=== PATIENT | female | born 1960 | race Hispanic/Latino ===

== ENCOUNTER 2018-11-21 02:42 | Observation (INO) | payer BC ==
[2018-11-21] VITALS (19 sets, daily range): BP systolic 138–185; BP diastolic 60–90
[2018-11-21 03:14] LABS: APPEARANCE,URINE Clear (CLEAR); BILIRUBIN,URINE Negative (NEGATIVE); COLOR,URINE Yellow (YELLOW); GLUCOSE, URINE (UA) Negative (NEGATIVE); KETONES,URINE Negative (NEGATIVE); LEUKOCYTE ESTERASE ,URINE Negative (NEGATIVE); NITRATE,URINE Negative (NEGATIVE); OCCULT BLOOD,URINE Negative (NEGATIVE); PROTEIN,URINE POS 1+ (NEGATIVE)
[2018-11-21 03:15] LABS: BASOPHILS % (AUTO) 0.5 % (0.0-5.0); HEMATOCRIT 43.1 % (36-48); MEAN CORPUSCULAR HEMOGLOBIN 29.2 pg (27.0-33.0); MEAN CORPUSCULAR HGB CONC 32.8 g/dL (32.0-36.0); MEAN CORPUSCULAR VOLUME 89.3 fL (79-99); MONOCYTES % (AUTO) 9.6 % (3.0-13.0); NEUTROPHILS % (AUTO) 65.9 % (40.0-77.0); NUCLEATED RED BLOOD CELLS 0.1 % (0.0-0.19); PLATELET COUNT (AUTO) 216 K/uL (130-400); RED BLOOD CELL COUNT(AUTO) 4.83 MIL/uL (4.00-5.50); RED CELL DISTRIBUTION WIDTH 14.6 % (11.0-15.5); WHITE BLOOD COUNT (AUTO) 8.6 K/uL (4.8-10.8)
[2018-11-21 03:18] LABS: CREATININE 0.9 mg/dL (0.5-1.5); POTASSIUM 3.4 mmol/L (3.5-5.1)
[2018-11-21] MEDS ORDERED: ONDANSETRON HCL 4 MG/2 ML VIAL ONE (03:18)
[2018-11-21] MEDS ORDERED: MORPHINE SULFATE 4 MG/1ML SYG ONE ×2 (03:19→04:39)
[2018-11-21 03:22] LABS: AMPHET/METH SCREEN,URINE NEGATIVE (NEGATIVE); BARBITURATE SCREEN, URINE NEGATIVE (NEGATIVE); BENZODIAZEPINES SCREEN,URINE NEGATIVE (NEGATIVE); CANNABINOID SCREEN,URINE NEGATIVE (NEGATIVE); COCAINE SCREEN,URINE NEGATIVE (NEGATIVE); OPIATE SCREEN,URINE NEGATIVE (NEGATIVE); PHENCYCLIDINE SCREEN,URINE NEGATIVE (NEGATIVE)
[2018-11-21 03:23] LABS: ALBUMIN 3.4 g/dL (3.5-5.0); BILIRUBIN,TOTAL 0.3 mg/dL (0.2-1.0)
[2018-11-21 03:28] LABS: AMORPHOUS SEDIMENT,UR Few /LPF (None Seen); BACTERIA,URINE Moderate /HPF (None Seen); RBC,URINE 0-1 /HPF (0-1); WBC,URINE 0-1 /HPF (0-1)
[2018-11-21] MEDS ORDERED: FAMOTIDINE/PF 20 MG/2 ML VIAL IV ONE (04:39)
[2018-11-21] MEDS ORDERED: LACTATED RINGERS 1000ML 1,000 ML IV ONE (08:05)
[2018-11-21] MEDS ORDERED: MIDAZOLAM HCL 1 MG/ML 2ML VIAL ONE (08:52)
[2018-11-21] MEDS ORDERED: SUCCINYLCHOLINE CHLORIDE 20 MG/ML 10 ML VIAL ONE (08:53)
[2018-11-21] MEDS ORDERED: ROCURONIUM 10MG/1ML SYR 10 MG/ML ML ONE (08:53)
[2018-11-21] MEDS ORDERED: FENTANYL CITRATE PF 50 MCG/1 ML 2ML VIAL ONE (08:53)
[2018-11-21] MEDS ORDERED: LIDOCAINE PF 2% 5ML ABBOJECT ONE (08:53)
[2018-11-21] MEDS ORDERED: LIDOCAINE HCL 4% LTA SOL 4 ML VIAL ONE ×2 (08:53→09:28)
[2018-11-21] MEDS ORDERED: ONDANSETRON HCL MDV 20ML 2 MG/ML VIAL ONE (08:53)
[2018-11-21] MEDS ORDERED: PROPOFOL 10 MG/ML 20ML VIAL IV ONE (08:53)
[2018-11-21] MEDS ORDERED: BUPIVACAINE/PF 0.5% 10ML VIAL ONE (08:58)
[2018-11-21] MEDS ORDERED: DEXAMETHASONE SOD PHOSPHATE 10MG/ML 1ML VIAL ONE (09:26)
[2018-11-21] MEDS ORDERED: NEOSTIGMINE 5MG/5ML SYR IV ONE (09:29)
[2018-11-21] MEDS ORDERED: GLYCOPYRROLATE 1 MG/5 ML SYRINGE ONE (09:29)
[2018-11-21] MEDS: LACTATED RINGERS 1000ML 1,000 ML IV SCH ×2 (11:55→21:45)
[2018-11-21] MEDS ORDERED: MORPHINE SULFATE 4 MG/1ML SYG IVP PRN (12:30)
[2018-11-21] MEDS ORDERED: ONDANSETRON HCL 4 MG/2 ML VIAL IVP PRN (12:30)
[2018-11-21] MEDS ORDERED: ACETAMINOPHEN-CODEINE 300/30MG TAB PO PRN (13:15)
[2018-11-21] MEDS ORDERED: POTASSIUM CHLORIDE 10% ELIXIR 20 MEQ/15 ML UDCUP PO PRN (13:15)
[2018-11-21] MEDS: ZOSYN 3.375GM+NS 50ML 50 ML IV SCH ×2 (13:15→21:42)
[2018-11-21] MEDS ORDERED: POTASSIUM CHLORIDE 20 MEQ ERTAB PO PRN (13:15)
[2018-11-21] MEDS ORDERED: POTASSIUM CHLORIDE 20MEQ/100ML 100 ML IV PRN ×2 (13:15)
[2018-11-21] MEDS ORDERED: LIDOCAINE HCL-MPF 1% 2ML VIAL IVP PRN ×2 (13:15)
[2018-11-21] MEDS: ACETAMINOPHEN-CODEINE 300/30MG TAB PO PRN ×2 (13:16→21:45)
[2018-11-21] MEDS ORDERED: PANT40TA25 PO (14:02)
[2018-11-21] MEDS ORDERED: AMLO5TAB7 PO (14:02)
[2018-11-21] MEDS ORDERED: ASPI-1197 PO (14:02)
[2018-11-21] MEDS ORDERED: LISI1TAB13 PO (14:02)
[2018-11-22 00:03] VITALS: BP 137/69
[2018-11-22 04:46] LABS: HEMATOCRIT 36.7 % (36-48); MEAN CORPUSCULAR HEMOGLOBIN 30.3 pg (27.0-33.0); MEAN CORPUSCULAR HGB CONC 33.7 g/dL (32.0-36.0); MEAN CORPUSCULAR VOLUME 89.9 fL (79-99); PLATELET COUNT (AUTO) 204 K/uL (130-400); RED BLOOD CELL COUNT(AUTO) 4.08 MIL/uL (4.00-5.50); RED CELL DISTRIBUTION WIDTH 14.6 % (11.0-15.5); WHITE BLOOD COUNT (AUTO) 11.8 K/uL (4.8-10.8)
[2018-11-22 04:57] LABS: ALBUMIN 2.7 g/dL (3.5-5.0); BILIRUBIN,TOTAL 0.8 mg/dL (0.2-1.0); CREATININE 0.8 mg/dL (0.5-1.5); POTASSIUM 3.8 mmol/L (3.5-5.1); TOTAL PROTEIN, SERUM 6.8 g/dL (6.0-8.3)
[2018-11-22 05:16] VITALS: BP 130/52
[2018-11-22] MEDS: ZOSYN 3.375GM+NS 50ML 50 ML IV SCH ×3 (06:04→21:24)
[2018-11-22] MEDS: ACETAMINOPHEN-CODEINE 300/30MG TAB PO PRN (07:27)
--- NOTE | 2018-11-22 08:00 | NUR ---
AM SHIFT ASSESSMENT.
[2018-11-22] MEDS: LACTATED RINGERS 1000ML 1,000 ML IV SCH ×2 (08:15→21:24)
[2018-11-22 09:04] VITALS: BP 139/74
--- NOTE | 2018-11-22 10:18 | NUR ---
DR. SO IN TO SEE PT. OK TO DISCHARGE THIS AFTERNOON IF TOLERATES REGULAR DIET AT LUNCH
--- NOTE | 2018-11-22 10:54 | NUR ---
CALLED DR. THOMPSON RE DC ORDERS FROM [facility] WITH HIM ON DC.
[2018-11-22] MEDS: HYDROCHLOROTHIAZIDE 25 MG TABLET PO SCH (11:40)
[2018-11-22] MEDS: LISINOPRIL 20 MG TABLET PO SCH (11:41)
[2018-11-22] MEDS: ASPIRIN 81MG TAB.CHEW PO SCH (11:41)
[2018-11-22] MEDS: PANTOPRAZOLE SODIUM 40 MG TABLET.DR PO SCH (11:41)
--- NOTE | 2018-11-22 14:00 | NUR ---
WALKING IN HALLWAY AND STATES VERY UNCOMFORTABLE, FEELS BLOATED
[2018-11-22] MEDS ORDERED: TYL3 PO (14:52)
[2018-11-22] MEDS ORDERED: AMLODIPINE BESYLATE 5 MG TAB PO SCH (16:30)
[2018-11-22 17:12] VITALS: BP 140/65
--- NOTE | 2018-11-22 18:00 | NUR ---
DR. THOMPSON HERE TO SEE PT. AND IS HOLDING DISCHARGE UNTIL TOMORROW AM. PT. INFORMED. CHARGE NURSE NOTIFIED.
[2018-11-22 20:00] VITALS: BP 157/86
[2018-11-23] VITALS: BP 142/73
[2018-11-23 04:00] VITALS: BP 146/74
[2018-11-23] MEDS: LACTATED RINGERS 1000ML 1,000 ML IV SCH (05:03)
[2018-11-23] MEDS: ZOSYN 3.375GM+NS 50ML 50 ML IV SCH (05:03)
--- NOTE | 2018-11-23 08:00 | NUR ---
am shift assessment. states she is now ready to go home. no bm yet but expelling a lot of flatus.
[2018-11-23 08:32] VITALS: BP 152/69
[2018-11-23] MEDS: PANTOPRAZOLE SODIUM 40 MG TABLET.DR PO SCH (08:33)
[2018-11-23] MEDS: LISINOPRIL 20 MG TABLET PO SCH (08:33)
[2018-11-23] MEDS: ASPIRIN 81MG TAB.CHEW PO SCH (08:33)
[2018-11-23] MEDS: HYDROCHLOROTHIAZIDE 25 MG TABLET PO SCH (08:33)
--- NOTE | 2018-11-23 09:00 | NUR ---
discharged now using teach back, she and daughter given dc inst. along with rx. for tylenol#3. understanding verbalized by both. will call on sat to make follow up appt. with dr. garcia. band aids removed from sm surgical wounds and new ones applied. saline lock lt ac removed intact.
== END 2018-11-23 09:08 | disposition home or self-care (01) ==
LOC: EDH 02:42 → EDHIP 06:15 → 4AH 10:25 → 4CH 20:33
PROVIDERS: ADMIT Internal Medicine; ATTEND Internal Medicine
DX: K81.0 Acute cholecystitis (principal); K82.8 Other specified diseases of gallbladder; R11.2 Nausea with vomiting, unspecified
CPT/HCPCS: 36415 ×2; 47562; 71045; 76705; 80053 ×2; 80305; 81001; 84484; 85025; 85027; 88304; 93005; 96361; 96365; 96366 ×3; 96375; 99284; A4649 ×2; C1769 ×3; G0378 ×51; J0330; J1100; J2001; J2250; J2270 ×2; J2405 ×2; J2543 ×6; J2704; J2710; J3010; J3490 ×3; J7030; J7120 ×5

== ENCOUNTER → 2019-09-30 | Outpatient (CLI) | payer BC ==
[~2019-09-30] MED LIST: AMLO5TAB9 PO; ASPI-1197 PO; LISI1TAB29 PO; PANT40TA25 PO; TYL3 PO
== END | disposition home or self-care (01) ==
LOC: RAH 08:22
PROVIDERS: ATTEND Obstetrics & Gynecology
DX: Z12.31 Encounter for screening mammogram for malignant neoplasm of breast (principal)
CPT/HCPCS: 77067

== ENCOUNTER → 2023-03-30 | Outpatient (CLI) | payer OTHER ==
[~2023-03-30] MED LIST changes: +AMLO-257 PO; -AMLO5TAB9 PO; -LISI1TAB29 PO; +LISI1TAB53 PO; -PANT40TA25 PO; +PANT40TA54 PO
== END | disposition home or self-care (01) ==
LOC: OIH 10:35
PROVIDERS: ATTEND Internal Medicine Nephrology
DX: Z13.6 Encounter for screening for cardiovascular disorders (principal)
CPT/HCPCS: 75571

== ENCOUNTER → 2025-01-11 | Outpatient (CLI) | payer OTHER ==
--- NOTE | 2025-01-11 10:54 | HMCIMG ---
CHEST 2VWS HISTORY: Shortness of breath COMPARISON: 11/21/2018 FINDINGS: Frontal and lateral projections of the chest were obtained. There is no acute pulmonary infiltrates or failure. The heart is borderline enlarged. No evidence of aortic calcification is seen. Degenerative changes are seen of the thoracolumbar spine. IMPRESSION: 1. No acute pulmonary infiltrates.
== END | disposition home or self-care (01) ==
LOC: RAH 09:50
PROVIDERS: ATTEND Internal Medicine Nephrology
DX: I10 Essential (primary) hypertension (principal); M47.815 Spondylosis without myelopathy or radiculopathy, thoracolumbar region; R06.02 Shortness of breath
CPT/HCPCS: 71046